=== PATIENT | male | born 1990 | race Caucasian/White ===

== ENCOUNTER 2019-07-21 11:41 | Emergency (ER) | payer SELFPAY ==
[~2019-07-21] VITALS: Ht 188 cm; Wt 79.5 kg
[2019-07-21 11:55] VITALS: BP 158/104; Ht 188 cm; Wt 79.5 kg
[2019-07-21] MEDS ORDERED: SMZ-TMP DS 800-1 TAB PO (13:00)
== END 2019-07-21 13:30 | disposition home or self-care (01) ==
LOC: D.ER 11:41
DX: L02.01 Cutaneous abscess of face (principal)

== ENCOUNTER 2020-01-11 19:16 | Emergency (ER) | payer SELFPAY ==
[~2020-01-11] VITALS: Ht 188 cm; Wt 77.3 kg
[~2020-01-11 19:16] MED LIST: SMZ-TMP DS 800-1 TAB PO
[2020-01-11 19:24] VITALS: Ht 188 cm; Wt 77.3 kg
[2020-01-11 20:37] LABS: BILIRUBIN NEGATIVE (NEGATIVE); KETONE SMALL mg/dL (NEGATIVE); NITRITE NEGATIVE (NEGATIVE); UROBILINOGEN NORMAL mg/dL (< 2)
[2020-01-11 20:38] LABS: BACTERIA MODERATE /HPF (NONE SEEN); WHITE CELLS - URINE 0-5 HPF (0-1)
[2020-01-11 20:40] LABS: UDS - AMPHET NEGATIVE QUAL (NEGATIVE); UDS - BARB NEGATIVE QUAL (NEGATIVE); UDS - BENZO NEGATIVE QUAL (NEGATIVE); UDS - COCAINE NEGATIVE QUAL (NEGATIVE); UDS - OPIATE NEGATIVE QUAL (NEGATIVE); UDS - PCP NEGATIVE QUAL (NEGATIVE); UDS - THC POSITIVE QUAL (NEGATIVE)
[2020-01-11 21:01] LABS: BASOPHILS 0.3 % (0-2); EOSINOPHILS 0 % (0-7); HEMATOCRIT 40.9 % (42.0-54.0); HEMOGLOBIN 14.1 g/dL (13.5-17.5); IMMATURE GRANULOCYTES 0.2 % (0-5); LYMPHOCYTES 8.8 % (15-50); MCH 31.2 pg (26.0-34.0); MCHC 34.5 g/dL (31.0-37.0); MCV 90.5 fL (80.0-100.0); MONOCYTES 13.4 % (2-11); NEUTROPHILS 77.3 % (40-80); PLATELET COUNT 64 10x3/uL (130-400); RBC 4.52 10x6/uL (4.20-6.10); RDW 13.2 % (11.5-14.5); WBC 6.6 10x3/uL (4.8-10.8)
[2020-01-11 21:05] VITALS: BP 139/86
[2020-01-11 21:19] LABS: CALC OSMOLALITY 267 mosm/kg (275-300); CALCIUM 8.9 mg/dL (8.5-10.1); CARBON DIOXIDE 26.5 mmol/L (21.0-32.0); CHLORIDE - SERUM 95 mmol/L (98-107); CREATININE - SERUM 0.9 mg/dL (0.6-1.3); GLUCOSE 147 mg/dL (74-106); POTASSIUM - SERUM 3.1 mmol/L (3.5-5.1); SODIUM 133 mmol/L (136-145); UREA NITROGEN 9 mg/dL (7-18); eGFR NON AFRICAN AMERICAN > 90 mL/min (90-120)
[2020-01-11 21:24] LABS: ALBUMIN 4.1 g/dL (3.4-5.0); ALKALINE PHOSPHATASE 96 U/L (30-120); ALT (SGPT) 378 U/L (10-68); BILIRUBIN - TOTAL 1.36 mg/dL (0.2-1.3); LIPASE 107 U/L (73-393); MAGNESIUM - SERUM 1.4 mg/dL (1.8-2.4); PROTEIN - SERUM 7.5 g/dL (6.4-8.2)
[2020-01-11 21:59] LABS: PLATELET ESTIMATE DECREASED
[2020-01-11] MEDS ORDERED: LIBRIUM25 MG PO (22:11)
== END 2020-01-11 23:00 | disposition home or self-care (01) ==
LOC: D.ER 19:16
PROVIDERS: Emergency Medicine
DX: F10.239 Alcohol dependence with withdrawal, unspecified (principal); Y90.0 Blood alcohol level of less than 20 mg/100 ml; T14.8XXA Other injury of unspecified body region, initial encounter; K74.60 Unspecified cirrhosis of liver; E87.6 Hypokalemia; E83.42 Hypomagnesemia